=== PATIENT | female | born 1980 | race American Indian/Alaskan Native ===

== ENCOUNTER 2021-01-13 11:45 | Emergency (ER) | payer BC, MEDICAID ==
[2021-01-13 11:52] VITALS: BP 124/86
[2021-01-13] MEDS ORDERED: TETANUS,DIPHTHERIA TOXOID ADULT 0.5 ML INJ IM ONE (12:01)
[2021-01-13] MEDS ORDERED: DIPHtheria,PERTUSSIS(ACELL),TETANUS VACCINE/PF 0.5 ML VIAL IM ONE (12:12)
--- NOTE | 2021-01-13 12:19 | Emergency Department Report ---
ED Laceration HPI - HPI Chief Complaint: Wound/Laceration Stated Complaint: RT THUMB LACERATION Time Seen by Provider: 01/13/21 12:01 Occurred When: Yesterday Severity: mild Tetanus Status: Unknown Laceration Symptoms: No Foreign Body Sensation, No Numbness, No Weakness, No Pain ED Review of Systems ROS: Stated complaint: RT THUMB LACERATION Other details as noted in HPI Comment: All other systems reviewed and negative Constitutional: no symptoms reported Cardiovascular: as per HPI Endocrine: no symptoms reported Gastrointestinal: as per HPI Skin: other (1CM ) ED Past Medical Hx - Past Medical History Previous Medical History?: No - Surgical History Past Surgical History?: Yes Additional Surgical History: EYE/ TUBAL - Social History Smoking Status: Never Smoker Substance Use Type: Alcohol Laceration Physical Exam - Exam General: Vital signs noted. No distress. Alert and acting appropriately. 40-year-old female in no acute distress respiration easy and unlabored she is alert and oriented x3 patient states that sometime yesterday last night she was intoxicated and sustained a laceration to the pad of her right thumb she does not recall how it it happened . She is unclear when her last tetanus was. Her right thumb the pad of her finger there is no active bleeding she has about a 1cm laceration that appears clean and dry.. She has full range of motion of her fingers she has 2+ radial pulse, good capillary refill 1 to 2 seconds lungs are clear S1-S2 audible. She is in no distress Laceration Location: Upper Extremity (Right thumb palmar portion distal right thumb no active bleeding) Laceration Exam: Yes Normal Distal CMS, No Foreign Body, No Exposed Tendon, Vessel, or Nerve, No Tendon Injury ED Course Vital Signs 01/13/21 11:50 Temperature 98.2 F Pulse Rate 102 H Respiratory 20 Rate Blood Pressure 124/86 O2 Sat by Pulse 99 Oximetry - Reevaluation(s) Reevaluation #1: 01/13/21 13:31 40-year-old female in no distress finger lack closed with Dermabond and Steri- Strips patient tolerated well - Laceration /Wound Repair Right Finger Wound Location: upper extremity (Right thumb) Wound's Depth, Shape: superficial Wound Explored: clean Betadine Prep?: No (Washed with soap and water) Wound Repaired With: Steri-strips, Dermabond Sterile Dressing Applied?: Yes ED Medical Decision Making - Medical Decision Making Simple laceration to her right thumb wound washed with soap and water explored for any foreign body there is no foreign body sensation. Wound closed with Dermabond and Steri-Strips. Patient tolerated well wound care instructions given Critical Care Time: No Critical care attestation.: If time is entered above; I have spent that time in minutes in the direct care of this critically ill patient, excluding procedure time. ED Disposition Clinical Impression: Finger laceration Qualifiers: Encounter type: initial encounter Finger: thumb Damage to nail status: without damage Foreign body presence: without foreign body Laterality: right Qualified Code(s): S61.011A - Laceration without foreign body of right thumb without damage to nail, initial encounter Disposition: TO HOME OR SELFCARE Is pt being admited?: No Does the pt Need Aspirin: No Condition: Stable Instructions: Laceration Care, Adult, Sutures, [place], or Adhesive Wound Closure, [id number] Additional Instructions: Keep wound clean and dry let Steri-Strips fall off on their own. Follow-up with your primary care doctor as needed. Return to the emergency room for any swelling drainage inability to move your finger or any other signs of infection. Today you received your tetanus. Okay to take [id number] Tylenol Motrin or Advil for pain as directed by the package insert Referrals: HARDY MARTINEZ MD [Staff Physician] - 3-5 Days Time of Disposition: 12:20
== END 2021-01-13 12:44 | disposition home or self-care (01) ==
LOC: ED 11:45
DX: S61.011A Laceration without foreign body of right thumb without damage to nail, initial encounter (principal); Z98.51 Tubal ligation status; X58.XXXA Exposure to other specified factors, initial encounter; Y93.89 Activity, other specified; Y92.89 Other specified places as the place of occurrence of the external cause; Y99.8 Other external cause status
CPT/HCPCS: 90471; 90715; 99282